=== PATIENT | male | born 1975 | race Caucasian/White ===

== ENCOUNTER 2020-05-30 18:31 | Emergency (ER) | payer MEDICAID ==
[~2020-05-30] VITALS: Ht 170.2 cm; Wt 78.9 kg
[2020-05-30 18:35] VITALS: Ht 170.2 cm; Wt 78.9 kg
[2020-05-30 19:19] VITALS: BP 125/74
== END 2020-05-30 19:19 | disposition home or self-care (01) ==
LOC: ED 18:31
DX: M70.32 Other bursitis of elbow, left elbow (principal); Y93.89 Activity, other specified